=== PATIENT | female | born 1980 | race American Indian/Alaskan Native ===

== ENCOUNTER 2021-10-01 04:20 | Emergency (ER) | payer SELFPAY ==
[2021-10-01] MEDS ORDERED: ALPRAZolam 0.5 MG TAB PO ONE (05:08)
[2021-10-01] MEDS ORDERED: FAMOTIDINE 20 MG TAB PO ONE (05:08)
[2021-10-01] MEDS ORDERED: ASPIRIN 81 MG TAB CHEW PO ONE (05:08)
--- NOTE | 2021-10-01 05:48 | XRay Report ---
CHEST 2 VIEWS INDICATION: Pleuritic chest pain, cough. COMPARISON: None. FINDINGS: Support devices: None. Heart: Within normal limits. Lungs/Pleura: No acute air space or interstitial disease. No significant pleural effusion. IMPRESSION: No acute findings. Signer Name: Mitchell Reyes MD Signed: 10/01/2021 5:44 AM Workstation Name: [id number]
[2021-10-01 06:16] LABS: Basophils % (Auto) 0.3 % (0.0-1.8); Eosinophils % (Auto) 0.3 % (0.0-4.3); Hematocrit 43.3 % (30.3-42.9); Hemoglobin 13.8 gm/dl (10.1-14.3); Lymphocytes # (Auto) 1.3 K/mm3 (1.2-5.4); Lymphocytes % (Auto) 19.4 % (13.4-35.0); Mean Corpuscular HGB Conc 32 % (30-34); Mean Corpuscular Volume 90 fl (79-97); Monocytes # (Auto) 0.8 K/mm3 (0.0-0.8); Monocytes % (Auto) 11.6 % (0.0-7.3); Platelet Count 221 K/mm3 (140-440); Red Blood Count 4.84 M/mm3 (3.65-5.03); Red Cell Distribution Width 18.3 % (13.2-15.2)
[2021-10-01 06:31] LABS: INR 0.95 (0.87-1.13)
[2021-10-01 06:32] LABS: Partial Thromboplastin Time 32.9 Sec. (24.2-36.6)
[2021-10-01] MEDS ORDERED: ONDANSETRON 4 MG/2 ML INJ IV ONE (06:36)
[2021-10-01 06:39] LABS: Alanine Aminotransferase 8 units/L (7-56); Albumin 4.5 g/dL (3.9-5); Blood Urea Nitrogen 8 mg/dL (7-17); Hemolysis Index 10
[2021-10-01 06:40] LABS: BUN/Creatinine Ratio 11
[2021-10-01] MEDS ORDERED: KETOROLAC 30 MG/1 ML INJ IV ONE (06:46)
--- NOTE | 2021-10-01 07:05 | Emergency Department Report ---
ED Chest Pain HPI - General Chief Complaint: Chest Pain Stated Complaint: CHEST PAIN Source: patient Mode of arrival: Ambulatory Limitations: No Limitations - History of Present Illness Initial Comments: Patient is a 41-year-old -[place] female with a history of anxiety and chronic back abuse who presents to the ED with complaint of acute onset persistent right-sided pleuritic chest pain with cough for the last 2 weeks, worse in the last 2 days. Patient states that the pain has been constant and persistent and also gets worse with movement or palpation of the right chest wall. Patient states that she has been going through a lot of family stressors including multiple deaths of some of her family members who are very close to her and that she has been finding it very difficult to cope. Patient states that she has been experiencing significant chest tightness and unable to sleep. Patient however denies suicidal or homicidal ideations. Patient denies dizzi ness, syncope, palpitations, change in vision, fever, chills, abdominal pain, diaphoresis, headache, neck pain, traumatic injury or heavy lifting and fall. MD Complaint: chest pain (Right-sided chest pain with cough) -: Sudden, week(s) (2) Onset: awoke with symptoms, other (With cough) Pain Location: right chest Pain Radiation: none Severity: severe Severity scale (0 -10): 7 Quality: sharp Consistency: constant Improves With: nothing Worsens With: palpation, movement, other (Cough) re: denies: nausea, vomting, diaphoresis, dyspnea, sense of impending doom Other Symptoms: cough, other (Chest tightness). denies: fever, syncope, acid taste in mouth, leg swelling, palpitations, burping Treatments Prior to Arrival: none - Related Data Previous Rx's Medication Instructions Recorded Last Taken Type Naproxen 500 mg PO Q12H PRN #20 tablet 10/01/21 Unknown Rx hydrOXYzine PAMOATE [Vistaril] 50 mg PO QHS PRN #30 capsule 10/01/21 Unknown Rx Allergies Allergy/AdvReac Type Severity Reaction Status Date / Time Penicillins Allergy Unknown Verified 10/01/21 04:25 Heart Score - HEART Score History: Slightly suspicious EKG: Normal Age: < 45 Risk factors: 1-2 risk factors Troponin: < normal limit HEART Score: 1 - EKG Read Time Time EKG Completed: 04:50 EKG Read Time: 04:55 - Critical Actions Critical Actions: 0-3 pts:0.9-1.7%risk of adverse cardiac event.Candidate for discharge ED Review of Systems ROS: Stated complaint: CHEST PAIN Other details as noted in HPI Constitutional: denies: chills, fever Eyes: denies: eye pain, eye discharge, vision change ENT: denies: ear pain, throat pain Respiratory: denies: cough, shortness of breath, wheezing Cardiovascular: chest pain (Right-sided chest wall pain), other (Chest tightness). denies: palpitations Endocrine: no symptoms reported Gastrointestinal: denies: abdominal pain, nausea, diarrhea Genitourinary: denies: urgency, dysuria, discharge Musculoskeletal: denies: back pain, joint swelling, arthralgia Skin: denies: rash, lesions Neurological: denies: headache, weakness, paresthesias Psychiatric: anxiety. denies: depression Hematological/Lymphatic: denies: easy bleeding, easy bruising ED Past Medical Hx - Past Medical History Previous Medical History?: No - Surgical History Past Surgical History?: Yes Additional Surgical History: C SECTION X 3. BILATERAL KNEE SURGERY - Medications Home Medications: Home Medications Medication Instructions Recorded Confirmed Last Taken Type Naproxen 500 mg PO Q12H PRN #20 tablet 10/01/21 Unknown Rx hydrOXYzine PAMOATE [Vistaril] 50 mg PO QHS PRN #30 capsule 10/01/21 Unknown Rx ED Physical Exam - General Limitations: No Limitations General appearance: alert, in no apparent distress - Head Head exam: Present: atraumatic, normocephalic, normal inspection - Eye Eye exam: Present: normal appearance, PERRL, EOMI Pupils: Present: normal accommodation - ENT ENT exam: Present: normal exam, normal orophraynx, mucous membranes moist, TM's normal bilaterally, normal external ear exam - Neck Neck exam: Present: normal inspection, full ROM - Respiratory Respiratory exam: Present: normal lung sounds bilaterally, chest wall tenderness (Palpable reproducible anterior right sided chest wall tenderness). Absent: respiratory distress, wheezes, rales, rhonchi, stridor, accessory muscle use, prolonged expiratory - Cardiovascular Cardiovascular Exam: Present: normal rhythm, tachycardia, normal heart sounds. Absent: systolic murmur, diastolic murmur, rubs, gallop - GI/Abdominal GI/Abdominal exam: Present: soft, normal bowel sounds. Absent: tenderness, guarding, rebound, hyperactive bowel sounds, hypoactive bowel sounds, organomegaly - Extremities Exam Extremities exam: Present: normal inspection, full ROM, normal capillary refill - Back Exam Back exam: Present: normal inspection, full ROM. Absent: tenderness, CVA tenderness (R), CVA tenderness (L), muscle spasm, paraspinal tenderness, vertebral tenderness - Neurological Exam Neurological exam: Present: alert, oriented X3, CN II-XII intact, normal gait, reflexes normal - Psychiatric Psychiatric exam: Present: normal affect, anxious - Skin Skin exam: Present: warm, dry, intact, normal color. Absent: rash ED Course Vital Signs 10/01/21 10/01/21 10/01/21 04:24 04:49 05:00 Temperature 98.2 F Pulse Rate 105 H 89 89 Respiratory 20 39 H 14 Rate Blood Pressure 137/94 148/101 Blood Pressure 128/91 [Left] O2 Sat by Pulse 99 100 100 Oximetry 10/01/21 10/01/21 10/01/21 05:19 05:30 05:45 Temperature Pulse Rate 95 H 89 Respiratory 30 H 13 Rate Blood Pressure 137/94 143/99 143/99 Blood Pressure [Left] O2 Sat by Pulse 99 100 100 Oximetry 10/01/21 10/01/21 06:01 06:15 Temperature Pulse Rate 86 93 H Respiratory 19 19 Rate Blood Pressure 159/103 148/101 Blood Pressure [Left] O2 Sat by Pulse 100 98 Oximetry CHANG score - Chang Score Age > 65: (0) No Aspirin use within the Past 7 Days: (0) No 3 or more CAD Risk Factors: (0) No 2 or more Angina events in past 24 hrs: (0) No Known CAD with more than 50% Stenosis: (0) No Elevated Cardiac Markers: (0) No ST Deviation Greater than 0.5mm: (0) No CHANG Score: 0 ED Medical Decision Making - Lab Data Result diagrams: 10/01/21 05:33 10/01/21 05:33 - EKG Data EKG shows normal: sinus rhythm Rate: normal - EKG Data Interpretation: normal EKG 10/01/21 07:16 The EKG shows normal sinus rhythm with a ventricular rate of 94 bpm, and no ST or T wave abnormalities. - Radiology Data Radiology results: report reviewed, image reviewed [address] [place] [address] XRay Report Signed Patient: FANY ACEVEDO MR#: [id number] : 1980 A cct:[id number] Age/Sex: 41 / F ADM Date: 10/01/21 Loc: ED Attending Dr: Ordering Physician: OBDULIO AVILA Date of Service: 10/01/21 Procedure(s): XR chest routine 2V Accession Number(s): [id number] cc: OBDULIO AVILA Fluoro Time In Minutes: CHEST 2 VIEWS INDICATION: Pleuritic chest pain, cough. COMPARISON: None. FINDINGS: Support devices: None. Heart: Within normal limits. Lungs/Pleura: No acute air space or interstitial disease. No significant pleural effusion. IMPRESSION: No acute findings. Signer Name: Mitchell Reyes MD Signed: 10/01/2021 5:44 AM Workstation Name: [id number] Transcribed By: ES Dictated By: Mitchell Reyes MD Electronically Authenticated By: Mitchell Reyes MD Signed Date/Time: 10/01/2144 DD/ TD/TT: - Medical Decision Making This is a 41-year-old -[place] female with a history of anxiety and chronic back abuse who presents to the ED with complaint of acute onset persistent right-sided pleuritic chest pain with cough for the last 2 weeks, worse in the last 2 days. Patient states that the pain has been constant and persistent and also gets worse with movement or palpation of the right chest wall. Patient states that she has been going through a lot of family stressors including multiple deaths of some of her family members who are very close to her and that she has been finding it very difficult to cope. Patient states that she has been experiencing significant chest tightness and unable to sleep. In the ED, patient is alert and oriented x3 and is not in any distress but is tachycardic and anxious in triage. EKG shows normal sinus rhythm with a ventricular rate of [address] or T wave abnormalities. Chest x-ray showed no acute cardiopulmonary abnormalities or pneumonitis. Patient's heart score is 1 and patient was treated in the ED for pain, also given antacid and aspirin. On reevaluation, patient felt better, pain is well controlled medications. Tachycardia resolved and patient will discharge home on anti- inflammatory pain medications and anxiety medications and advised to follow-up with her primary care physician in 3 to 5 days for reevaluation or return to the ED immediately if symptoms get worse. - Differential Diagnosis ACS; PE; pneumonia; costochondritis; anxiety; dissection Critical care attestation.: If time is entered above; I have spent that time in minutes in the direct care of this critically ill patient, excluding procedure time. ED Disposition Clinical Impression: Acute nonspecific chest pain with low risk of coronary artery disease, Acute costochondritis, Anxiety as acute reaction to exceptional stress, Insomnia due to anxiety and fear Disposition: 01 HOME / SELF CARE / HOMELESS Is pt being admited?: No Does the pt Need Aspirin: No Condition: Stable Instructions: Chest Pain (ED), Costochondritis, [id number], Nonspecific Chest Pain, Adult, [id number], Chest Wall Pain, [id number], Generalized Anxiety Disorder, Adult Additional Instructions: All lab test results were reviewed and are all nonactionable. Your chest wall pain is likely due to musculoskeletal muscle strain. Therefore take medications with food, drink plenty of fluids and follow-up with your primary care physician in 7 to 10 days for reevaluation. Return to the ED immediately if symptoms get worse. Prescriptions: hydrOXYzine PAMOATE [Vistaril] 50 mg PO QHS PRN #30 capsule PRN Reason: Anxiety Naproxen 500 mg PO Q12H PRN #20 tablet PRN Reason: Pain , Severe (7-10) Referrals: [facility] [Provider Group] - 3-5 Days Forms: Work/School Release Form(ED) Time of Disposition: 07:12 Print Language: BURKINAN
[2021-10-01 07:52] VITALS: BP 117/71
--- NOTE | 2021-10-01 10:44 | Electrocardiograph Report ---
[facility] Test Date: 2021-10-01 Test Time: 04:28:30 Pat Name: FANY ACEVEDO Department: Room: Gender: F [employer] Attendant: [id number] : 1980 Requested By: DEWAYNE BUSTILLOS Order Number: [id number] Reading MD: Ismael Ibrahim Measurements Intervals [place] Rate: 94 P: 66 OR: 136 QRS: 61 QRSD: 71 T: 41 QT: 376 QTc: 471 Interpretive Statements Sinus rhythm No previous ECG available for comparison Electronically Signed On 10-01-2021 10:44:27 EST by Ismael Ibrahim
== END 2021-10-01 07:53 | disposition home or self-care (01) ==
LOC: ED 04:20
DX: M94.0 Chondrocostal junction syndrome [Tietze] (principal); F41.1 Generalized anxiety disorder; F43.0 Acute stress reaction; F51.05 Insomnia due to other mental disorder
CPT/HCPCS: 36415; 71046; 80053; 83880; 84484; 84703; 85025; 85379; 85610; 85730; 93005; 96374; 99284; J2405